=== PATIENT | male | born 1945 | race Caucasian/White ===

== ENCOUNTER → 2016-09-23 | Outpatient (CLI) | payer OTHER, MEDICARE ==
--- NOTE | 2016-09-23 16:49 | DX ---
Chest, Two Views - September 23, 2016, at 1549 hours History: Cough for 6 months, R05, R53.83, K30. Comparison: August 2010. Findings: Cardiac silhouette is within normal range. Linear density in the right middle lobe is new since the previous study representing atelectasis or scarring. Increased reticular densities in both lungs peripherally, which may represent developing interstitial pulmonary fibrosis, given the chroni city of findings. No definite focal pneumonia, congestive heart failure, pleural effusion, or pneumot horax. Tortuous thoracic aorta. Impression: 1. New atelectasis in the right middle lobe. 2. Possible chronic bronchitis versus early interstitial pulmonary fibrosis, for which additional taty ging is recommended. 3. Recommend CT chest with contrast enhancement for further evaluation of the pulmonary parenchyma, g iven the new radiographic findings and chronic cough to exclude postobstructive pneumonitis. A follow-up required test result notification was sent via the [facility] service, 4:44:48 PM, 09/23/2016, [facility] Message ID [id number].
== END ==
LOC: FIMAGING 15:53
PROVIDERS: ATTEND Internal Medicine
DX: R05 Cough (principal); R53.83 Other fatigue; K30 Functional dyspepsia; J98.11 Atelectasis

== ENCOUNTER 2017-09-03 11:57 | Emergency (ER) | payer OTHER, MEDICARE ==
[2017-09-03 12:06] VITALS: BP 122/78; PULSE 74; RESP 16; TEMP 97.9; O2SAT 96
--- NOTE | 2017-09-03 13:20 | EDPHY ---
ED Progress Note Narrative: 1:18 p.m.: The patient was not in the bed in [place] to as appointed. I was told that the patient left against medical advice. I did not see this patient while he was in the emergency department.
--- NOTE | 2017-09-03 22:27 | EDPHY ---
H & P Time Seen by Provider: 09/03/17 12:38 HPI/ROS: CHIEF COMPLAINT: Finger lacerations and amputation HPI: 72 year old present reporting an injury to his left hand with a "tool". Nursing staff reported hand injured by table saw, patient states it didn't matter, it was a tool. He reports significant injury to left index finger and laceration of left middle finger. No other injuries or complaints. Otherwise well prior to the events. On no anticoagulants REVIEW OF SYSTEMS:10 point review of systems as per HPI. GENERAL APPEARANCE: Alert, no distress, seems frustrated and worried. FOCUSED EXAM ON LEFT UPPER EXTREMITY: FROM left shoulder and elbow. No injury to upper arm or forearm or wrist. Left thumb: Laceration present on ulnar aspect. Bleeding controlled. Normal extensor/flexor function, normal cap refill. Normal sensation. Left index finger: Avulsion defect of 2 cm present on ulnar aspect, over distal phalanx. Bone visible as well as ?digital nerve?. Normal extensor mechanism and flexor mechanism/ strength. Left middle finger: superficial 2 cm laceration along radial side of finger. Bleeding well controlled. Smoking Status: Never smoked Constitutional: Initial Vital Signs Temperature (C) 36.6 C 09/03/17 12:04 Heart Rate 74 09/03/17 12:04 Respiratory Rate 16 09/03/17 12:04 Blood Pressure 122/78 H 09/03/17 12:04 O2 Sat (%) 96 09/03/17 12:04 O2 Delivery Mode Room Air Allergies/Adverse Reactions: No Known Allergies Allergy (Verified 09/03/17 12:04) Home Medications: Medication Instructions Recorded NK [No Known Home Meds] 09/03/17 Medical Decision Making - Diagnostics Imaging Results: Imaging Impressions Hand X-Ray 09/03/17 12:10 Impression: Soft tissue injuries, with no acute osseous abnormality observed. ED Course/Re-evaluation: 72 year old male with avulsion type injury along lateral aspect on index finger. Will need careful exploration, debridement, soft tissue coverage. Patient has piece of tissue which had been lacerated off. He is wondering if it should be reimplanted. Advised that most likely would not be appropriate. Moist dressing applied. Will perform digital blocks and further explore. While tending to patient care and awaiting a bed in a room to open where patient could be examined under overhead lamp, etc., patient abruptly decided to leave ED. He did advise nursing staff. States he wants to go to a hand surgeon. Did not wish to wait until I could discuss with patient again my concerns and plan of care. Patient left ED after signing AMA form. Workup incomplete and evaluation incomplete. Differential Diagnosis: Differential diagnosis for the patient's injury was considered including but not limited to contusion, abrasion, laceration, degloving injury, nerve damage, open joint, fracture, open fracture, or dislocation. Departure - Departure Disposition: Against Medical Advice Clinical Impression: Laceration Degloving injury of finger Qualifiers: Encounter type: initial encounter Qualified Code(s): S61.209A - Unspecified open wound of unspecified finger without damage to nail, initial encounter Condition: Good Additional Instructions: Left without completion of evaluation. Referrals: Tito Rodriguez MD [Primary Care Provider] - As per Instructions
== END 2017-09-03 13:33 | disposition left against medical advice (07) ==
DX: S61.211A Laceration without foreign body of left index finger without damage to nail, initial encounter (principal); S61.213A Laceration without foreign body of left middle finger without damage to nail, initial encounter; W27.0XXA Contact with workbench tool, initial encounter

== ENCOUNTER 2017-11-25 12:46 | Day surgery (SDC) | payer OTHER, MEDICARE ==
--- NOTE | 2017-11-25 11:39 | GHP ---
[f rep st] PREOP HISTORY AND PHYSICAL DATE OF ADMISSION: 11/25/2017 HISTORY OF PRESENT ILLNESS: The patient is a 72-year-old male who has been diagnosed with esophageal cancer nearly obstructing. He is in need of a port to initiate chemotherapy. Admitted at this time for port placement. Risks and options have been fully discussed, and he wishes to proceed. PAST MEDICAL HISTORY: An inguinal hernia repair. No other major hospitalizations, surgeries, or carlee or illnesses other than newly diagnosed esophageal cancer. He has had a 35 pounds weight loss over t he last 3 years, but specifically about 10 pounds over the last few weeks. REVIEW OF SYSTEMS: Negative on a full 10-point review of systems. Specifically he does not smoke. Denies any cardiac symptoms. ALLERGIES: None. MEDICATIONS: None. PHYSICAL EXAMINATION: GENERAL: An alert, healthy 72-year-old male in no acute distress who is quite thin appearing. HEENT: Reveals no icterus. No adenopathy. No oral lesions. NECK: Supple, nonte nder without bruits or thyromegaly. CHEST: Clear. CARDIAC: Regular rhythm without murmurs. ABDOM EN: Soft, scaphoid, nontender without masses. EXTREMITIES: Benign with full range of motion, full pulses. SKIN: Negative for rashes or other lesions. PSYCH: Alert, oriented, and cooperative. JENNIFER ROLOGIC: Physiologic and symmetric. IMPRESSION: Nearly obstructing esophageal cancer. PLAN: Port for chemotherapy. The risks and options have been fully discussed and he wishes to proce ed. /[id number]/MODL
[2017-11-25] MEDS ORDERED: ceFAZolin 2 GM/SWFI 2 GM/20 ML SYR IVP ONE (13:00)
[2017-11-25] MEDS ORDERED: LR 1,000 ML IV ONE (13:03)
[2017-11-25] MEDS ORDERED: LIDOCAINE 1% 2 ML INJ ID PRN (13:03)
[2017-11-25] MEDS ORDERED: LIDOCAINE 1% 300 MG/30 ML SDV ONE (13:14)
[2017-11-25] MEDS ORDERED: BUPIVACAINE 0.5% 10 ML SDV ONE (13:14)
[2017-11-25] MEDS ORDERED: BACITRACIN ZINC 14.2 GM OINTTUBE TP ONE (13:14)
[2017-11-25] MEDS ORDERED: PROPOFOL/EMULSION 500 MG/50 ML BOTTLE IV ONE (13:37)
[2017-11-25] MEDS ORDERED: fentaNYL 100 MCG/2 ML INJ ONE (13:41)
[2017-11-25] MEDS ORDERED: ALBUTEROL 3 ML DEYVIAL IH PRN (13:54)
[2017-11-25] MEDS ORDERED: HYDROCODONE/APAP 5/325 TAB PO PRN (13:54)
[2017-11-25] MEDS ORDERED: ONDANSETRON 4 MG/2 ML VIAL IVP PRN (13:54)
[2017-11-25] MEDS ORDERED: fentaNYL 100 MCG/2 ML INJ IVP PRN (13:54)
[2017-11-25] MEDS ORDERED: MEPERIDINE 25 MG/ML SYR IVP PRN (13:54)
[2017-11-25] MEDS ORDERED: LABETALOL HCL 5 MG/ML 20 ML MDV IVP PRN (13:54)
[2017-11-25] MEDS ORDERED: NALOXONE HCL 0.4 MG/ML INJ IVP PRN (13:54)
--- NOTE | 2017-11-25 13:54 | PDANEPAE ---
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 ANE Past Medical History - Cardiovascular History Hx Hypertension: No Hx Arrhythmias: No Hx Chest Pain: No Hx Coronary Artery / Peripheral Vascular Disease: No Hx CHF / Valvular Disease: No Hx Palpitations: No - Pulmonary History Hx COPD: No Hx Asthma/Reactive Airway Disease: No Hx Recent Upper Respiratory Infection: No Hx Oxygen in Use at Home: No Hx Sleep Apnea: No Sleep Apnea Screening Result - Last Documented: Negative - Neurologic History Hx Cerebrovascular Accident: No Hx Seizures: No Hx Dementia: No - Endocrine History Hx Diabetes: No - Renal History Hx Renal Disorders: No - Liver History Hx Hepatic Disorders: No - Neurological & Psychiatric Hx Hx Neurological and Psychiatric Disorders: No - Cancer History Hx Cancer: No - Congenital Disorder History Hx Congenital Disorders: No - GI History Hx Gastrointestinal Disorders: No - Chronic Pain History Chronic Pain: No ANE Review of Systems Review of systems is: negative Review of Systems: - Exercise capacity METS (RN): 4 METS ANE Patient History - Allergies Allergies/Adverse Reactions: No Known Allergies Allergy (Verified 09/03/17 12:04) - Home Medications Home Medications: Omeprazole 11/25/17 [Last Taken 11/25/17] - NPO status NPO Since - Liquids (Date): 11/25/17 NPO Since - Liquids (Time): 06:30 NPO Since - Solids (Date): 11/11/17 NPO Since - Solids (Time): 09:00 - Smoking Hx Smoking Status: Never smoked ANE Labs/Vital Signs - Vital Signs Blood Pressure: 107/75 Heart Rate: 82 Respiratory Rate: 18 O2 Sat (%): 93 Height: 182.88 cm Weight: 68.039 kg ANE Physical Exam - Airway Neck exam: FROM Mallampati Score: Class 1 Mouth exam: normal dental/mouth exam - Pulmonary Pulmonary: no respiratory distress - Cardiovascular Cardiovascular: regular rate and rhythym - ASA Status ASA Status: II ANE Anesthesia Plan Anesthesia Plan: MAC
--- NOTE | 2017-11-25 14:30 | POSTOPPROG ---
Post Op Note Date of Operation: 11/25/17 Surgeon: Ez Platt Anesthesia: IV Sedation Pre-op Diagnosis: Esophageal CA Post-op Diagnosis: Same Indication: Port for chemo Procedure: Port placement, left chest Inf/Abcess present in the surg proc area at time of surgery?: No
[2017-11-25 15:28] VITALS: RESP 20
[2017-11-25 15:42] VITALS: TEMP 97.7
[2017-11-25 16:14] VITALS: PULSE 71
[2017-11-25 16:49] VITALS: BP 109/75; O2SAT 95
--- NOTE | 2017-12-08 17:03 | GOP ---
[f rep st] OPERATIVE REPORT DATE OF OPERATION: 11/25/2017 SURGEON: Ez Platt MD FOOD AND NUTRITION SUPERVISOR: None. PREOPERATIVE DIAGNOSIS: Metastatic colon cancer. POSTOPERATIVE DIAGNOSIS: Metastatic colon cancer. PROCEDURE PERFORMED: Left subclavian port placement with fluoroscopic guidance. FINDINGS: good position and flow DESCRIPTION OF PROCEDURE: The patient was taken to the operating room where he received satisfactory general laryngeal mask anesthesia. He was placed in the supine position, prepped and draped in the usual sterile fashion. A single stick was made in the left subclavian vein. With the patient in Trendelenburg, a guidewire was introduced. Position was confirmed with fluoroscopy. A subcu pocket was made in the 2nd intercostal space. Port tubing was passed from that pocket to the subclavian insertion site and trimmed to the appropriate length using fluoroscopic guidance. It was then introduced into the right atrium via the dilator and introducer system. Good backflow was achieved. The catheter was flushed with heparin saline. Port was secured to the fascia with 3-0 Vicryl. The pocket was closed with 3-0 Vicryl for the subcu and 4-0 Prolene subcuticular stitch for the skin. The entrance site was closed with a prolene mattress suture. He tolerated the procedure quite well. Blood loss negligible. No complications. Taken to the recovery room in good condition. /[id number]/MODL MTDD
== END 2017-11-25 16:05 | disposition home or self-care (01) ==
LOC: FSGY 12:46
PROVIDERS: ATTEND Surgery
PROC: 02H633Z Insertion of Infusion Device into Right Atrium, Percutaneous Approach (ICD-10-PCS; principal; 2017-11-25 14:00)
PROC: 0JH60XZ Insertion of Tunneled Vascular Access Device into Chest Subcutaneous Tissue and Fascia, Open Approach (ICD-10-PCS; principal; 2017-11-25 14:00)
DX: C15.9 Malignant neoplasm of esophagus, unspecified (principal)
CPT/HCPCS: C1788; J0690; J1642; J2704; J3010

== ENCOUNTER 2018-01-10 09:40 | Day surgery (SDC) | payer OTHER, MEDICARE ==
[2018-01-10 10:33] LABS: INR 1.79 (0.83-1.16); PROTIME(PATIENT) 20.9 SEC (12.0-15.0)
[2018-01-10] MEDS ORDERED: FLUMAZENIL 0.5 MG/5 ML MDV IVP ONE (10:33)
[2018-01-10] MEDS ORDERED: fentaNYL 100 MCG/2 ML INJ ONE (10:34)
[2018-01-10] MEDS ORDERED: MIDAZOLAM 2 MG/2 ML VIAL ONE (10:34)
[2018-01-10] MEDS ORDERED: NALOXONE HCL 0.4 MG/ML INJ ONE (10:34)
[2018-01-10] MEDS ORDERED: MIDAZOLAM 2 MG/2 ML VIAL IVP PRN (10:51)
[2018-01-10] MEDS ORDERED: NALOXONE HCL 0.4 MG/ML INJ IVP PRN (10:51)
[2018-01-10] MEDS ORDERED: fentaNYL 100 MCG/2 ML INJ IVP PRN (10:51)
[2018-01-10] MEDS ORDERED: MEPERIDINE 25 MG/ML SYR IVP PRN (10:51)
[2018-01-10] MEDS ORDERED: FLUMAZENIL 0.5 MG/5 ML MDV IVP PRN (10:51)
[2018-01-10] MEDS ORDERED: NS 1,000 ML IV SCH (11:00)
--- NOTE | 2018-01-10 11:08 | PDGENHP ---
History & Physical Chief Complaint: ESOPHAGEAL CANCER History of Present Illness: STARTED CHEMO. NO XRT. VERY TIGHT DISTAL ESOPHAGOUS. 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 CTA
[2018-01-10] MEDS ORDERED: LIDOCAINE 1% 300 MG/30 ML SDV ONE (11:10)
--- NOTE | 2018-01-10 11:10 | PDPROPOC ---
Sedation Plan of Care Sedation Plan of Care: vital signs stable, mental status noted, patient educated of risks, benefits, alternatives, patient can tolerate sedation ASA Classification: ASA 3 Planned drugs: fentanyl, midazolam Mallampati Score: Class 1 Mallampati Reference Image: Patient passed 3-3-2 rule?: Yes
[2018-01-10] MEDS ORDERED: LIDOCAINE 2% JELLY 20 ML (UROJECT) ONE (11:11)
[2018-01-10] MEDS ORDERED: ACETAMINOPHEN 325 MG TAB PO PRN (12:40)
[2018-01-10] MEDS ORDERED: ONDANSETRON 4 MG/2 ML VIAL IVP PRN (12:40)
--- NOTE | 2018-01-10 12:42 | PDRADPN ---
Radiology Procedure Note Date of Procedure: 01/10/18 Radiologist: Agnieszka Wilson Anesthesia: IV Sedation Pre-op Diagnosis: ESOPHAGEAL CANCER Post-op Diagnosis: SAME Indication: CAN NOT EAT Procedure: G-TUBE PLACEMENT Inf/Abcess present in the surg proc area at time of surgery?: No Complications: NONE Drains: Other (G-TUBE)
[2018-01-10 14:20] VITALS: BP 123/82
== END 2018-01-10 14:15 | disposition home or self-care (01) ==
LOC: FIMAGING 09:40
PROVIDERS: ATTEND Radiology Diagnostic Radiology
PROC: 0DH63UZ Insertion of Feeding Device into Stomach, Percutaneous Approach (ICD-10-PCS; principal; 2018-01-10 12:30)
DX: C16.0 Malignant neoplasm of cardia (principal)
CPT/HCPCS: 49440; C1729; C1769; J1642; J2250; J2310; J3010

== ENCOUNTER 2018-04-17 12:46 | Emergency (ER) | payer OTHER, MEDICARE ==
[2018-04-17 12:52] VITALS: BP 112/70
--- NOTE | 2018-04-17 13:00 | EDPHY ---
H & P Smoking Status: Never smoked Time Seen by Provider: 04/17/18 13:00 HPI/ROS: CHIEF COMPLAINT: Worsening abdominal pain HISTORY OF PRESENT ILLNESS: Patient has metastatic gastroesophageal junction adenocarcinoma, is on TPN, is currently on morphine. He presents with worsening abdominal pain and retching up some black liquid today. Symptoms severe, was called by his oncologist and palliative care physician prior to arrival. He is really unable to eat and has been that way for a while. Is oncologist request CT scanning of abdomen and pelvis to evaluate his illness further, consideration for hospice at this time. REVIEW OF SYSTEMS: Eye: no change in vision ENT: no sore throat Cardiac: no chest pain or syncope Pulmonary: no cough or SOB Abdomen: HPI, decreased oral intake Musculoskeletal: no back pain Skin: no rash Neuro: no headache Constitutional: no fever : no urinary symptoms A comprehensive 10 point review of systems is otherwise negative aside from elements mentioned in the history of present illness. PAST MEDICAL HISTORY: Gastroesophageal junction adenocarcinoma Social history: Here with his and [id number] General Appearance: Alert and conversant, cooperative. Eyes: No scleral icterus. ENT, Mouth: Dry mucous membranes Respiratory: Normal respiratory effort, breath sounds equal, lungs are clear to auscultation. Cardiovascular: Regular rate and rhythm. Gastrointestinal: Abdomen is soft and non tender. He has a feeding tube in place, skin around it is not red or excoriated. Neurological: Alert, face symmetric, normal motor and sensory in extremities. Skin: Warm and dry, no rashes. Musculoskeletal: No peripheral edema. Psychiatric: Not agitated. Emergency Department course/MDM: Left subclavian port in place accessed. CT scanning discussed and consented. He is on morphine so 6 mg IV additional given. Call to Kareem at [phone] 1534: Finer on CT compared to previous April 02, 2018. Necrotic ulcerated mass increased in size, as well as adjacent node/s. Bile ducts slightly more prominent. 1535: Karoline discussed results will see in ED. Jayden at this time as well. Signed to Steven; Karoline will see and inpatient hospice vs. inpatient medicine service. (Luis Mendoza) Constitutional: Initial Vital Signs Temperature (C) 36.4 C 04/17/18 12:50 Heart Rate 98 04/17/18 12:50 Respiratory Rate 17 04/17/18 12:50 Blood Pressure 112/70 04/17/18 12:50 O2 Sat (%) 94 04/17/18 12:50 O2 Delivery Mode Room Air Allergies/Adverse Reactions: No Known Allergies Allergy (Verified 04/17/18 12:49) Home Medications: Medication Instructions Recorded Omeprazole 25 mg PO DAILY 11/25/17 MORPHINE SULFATE 10 mg PO Q2HRS PRN 01/09/18 Prochlorperazine Maleate 10 mg PO Q6HRS PRN 01/09/18 Valium 5 MG (*) 5 mg PO Q6-8PRN PRN 01/09/18 Ondansetron [Zuplenz] 01/10/18 Keytruda 04/17/18 Prednisone 04/17/18 Medical Decision Making - Diagnostics Imaging Results: Imaging Impressions Abdomen CT 04/17/18 13:46 Impression: 1. Slight increase size of large ulcerated lobulated mass the GE junction extending anteriorly as well as adjacent necrotic appearing anterior lymph node at the GE junction since prior study from 04/02/2018. 2. Mild increased prominence of intra and extrahepatic biliary ductal dilatation. No evidence of biliary calculus seen. 3. Moderate constipation. Findings discussed with Luis Mendoza M.D. at 15:33 hour, 04/17/2018. ED Course/Re-evaluation: I took over care of this patient at 3:[address] Luis Mendoza. This patient has a history of advanced esophageal cancer. He is to be admitted directly to hospice by Dr. Edward beckett to the hospitalist service. Dr. Leon is currently in the emergency department and is evaluating the patient for direct hospice admission. Dr. Mendoza has also discussed details of the case with the on- call hospitalist Dr. Delmer Fregoso. 5:20 p.m., the patient was admitted to to the hospitalist service under the care of Dr. Delmer Fregoso. However the patient and his now inform me that they wish to be discharged. He has close follow-up arranged through his palliative care physician Dr. Ramey. His oncologist Dr. Carpenter as well as his admitting physician Dr. Fregoso are supportive of his discharge. He will be discharged to home as he and his wish. Return to emergency department precautions discussed with him. Follow-up was reviewed. All of their questions were answered. The patient was discharged home in stable condition. ( Tiffany Aragon) - Data Points Laboratory Results: Laboratory Results 04/17/18 13:25 04/17/18 13:25 04/17/18 04/17/18 04/17/18 13:33 13:25 13:25 WBC 10.37 10^3/uL H 10^3/uL (3.80-9.50) RBC 3.71 10^6/uL L 10^6/uL (4.40-6.38) Hgb 10.3 g/dL L g/dL (13.7-17.5) POC Hgb 10.5 gm/dL L gm/dL (13.7-17.5) Hct 32.4 % L % (40.0-51.0) POC Hct 31 % L % (40-51) MCV 87.3 fL fL (81.5-99.8) MCH 27.8 pg L pg (27.9-34.1) MCHC 31.8 g/dL L g/dL (32.4-36.7) RDW 15.3 % H % (11.5-15.2) Plt Count 261 10^3/uL 10^3/uL (150-400) MPV 10.7 fL fL (8.7-11.7) Neut % (Auto) 87.3 % H % (39.3-74.2) Lymph % (Auto) 5.7 % L % (15.0-45.0) [place] % (Auto) 5.5 % % (4.5-13.0) Eos % (Auto) 0.8 % % (0.6-7.6) Baso % (Auto) 0.1 % L % (0.3-1.7) Nucleat RBC Rel Count 0.0 % % (0.0-0.2) Absolute Neuts (auto) 9.05 10^3/uL H 10^3/uL (1.70-6.50) Absolute Lymphs (auto) 0.59 10^3/uL L 10^3/uL (1.00-3.00) Absolute Monos (auto) 0.57 10^3/uL 10^3/uL (0.30-0.80) Absolute Eos (auto) 0.08 10^3/uL 10^3/uL (0.03-0.40) Absolute Basos (auto) 0.01 10^3/uL L 10^3/uL (0.02-0.10) Absolute Nucleated RBC 0.00 10^3/uL 10^3/uL (0-0.01) Immature Gran % 0.6 % % (0.0-1.1) Immature Gran # 0.06 10^3/uL 10^3/uL (0.00-0.10) RBC/WBC/PLT Morphology TNP Platelet Estimate TNP Smear Review By TNP POC Sodium 136 mEq/L mEq/L (135-145) Sodium 134 mEq/L L mEq/L (135-145) POC Potassium 3.8 mEq/L mEq/L (3.3-5.0) Potassium 3.9 mEq/L mEq/L (3.3-5.0) POC Chloride 99 mEq/L mEq/L (97-110) Chloride 99 mEq/L mEq/L (97-110) Carbon Dioxide 27 mEq/l mEq/l (22-31) Anion Gap 8 mEq/L mEq/L (8-16) POC BUN 31 mg/dL H mg/dL (7-23) BUN 37 mg/dL H mg/dL (7-23) Creatinine 0.6 mg/dL L mg/dL (0.7-1.3) POC Creatinine 0.6 mg/dL L mg/dL (0.7-1.3) Estimated GFR > 60 Glucose 92 mg/dL mg/dL (70-100) POC Glucose 92 mg/dL mg/dL (70-100) Calcium 9.5 mg/dL mg/dL (8.5-10.4) Total Bilirubin 0.3 mg/dL mg/dL (0.1-1.4) Conjugated Bilirubin 0.3 mg/dL mg/dL (0.0-0.5) Unconjugated Bilirubin 0.0 mg/dL mg/dL (0.0-1.1) AST 23 IU/L IU/L (17-59) ALT 39 IU/L IU/L (21-72) Alkaline Phosphatase 101 IU/L IU/L (38-126) Total Protein 5.5 g/dL L g/dL (6.3-8.2) Albumin 2.5 g/dL L g/dL (3.5-5.0) Lipase 45 IU/L IU/L (23-300) Medications Given: Discontinued Medications Sodium Chloride (Ns) 1,000 mls @ 0 mls/hr IV EDNOW ONE; Wide Open PRN Reason: Protocol Stop: 04/17/18 13:11 Last Admin: 04/17/18 13:22 Dose: 1,000 mls Morphine Sulfate (Morphine) 6 mg IVP EDNOW ONE Stop: 04/17/18 13:11 Last Admin: 04/17/18 13:22 Dose: 6 mg Point of Care Test Results: Chemistry 04/17/18 13:33 POC Sodium 136 mEq/L mEq/L (135-145) POC Potassium 3.8 mEq/L mEq/L (3.3-5.0) POC Chloride 99 mEq/L mEq/L (97-110) POC BUN 31 mg/dL H mg/dL (7-23) POC Creatinine 0.6 mg/dL L mg/dL (0.7-1.3) POC Glucose 92 mg/dL mg/dL (70-100) ISTAT H&H 04/17/18 13:33 POC Hgb 10.5 gm/dL L gm/dL (13.7-17.5) POC Hct 31 % L % (40-51) Departure - Departure Disposition: Home, Routine, Self-Care Clinical Impression: Abdominal pain, Esophageal cancer Condition: Fair Instructions: Abdominal Pain (ED) Additional Instructions: Read and follow provided instructions. Follow-up with your palliative care physician tomorrow and oncologist tomorrow as discussed. Return to the emergency department for worsening symptoms or other serious concerns. Referrals: Alonso Carpenter MD [Primary Care Provider] - As per Instructions
[2018-04-17] MEDS ORDERED: NS 1,000 ML IV ONE (13:10)
[2018-04-17 13:35] LABS: PLATELET COUNT 261 10^3/uL (150-400)
[2018-04-17] MEDS ORDERED: IOPAMIDOL (ISOVUE-300) 100 ML BTL ONE (14:01)
--- NOTE | 2018-04-17 16:56 | PDCONSULT ---
[employer] Man Note: PALLIATIVE MEDICINE NOTE Patient seen in ED in follow up of home visit earlier today. Chip is a 72 year old male with GE junction adenocarcinoma who has most recently received Keytruda therapy. Patient's reports notable decline over last two weeks, with increased pain (now nearly continuous), worsening fatigue, concentrated urine, nominal PO intake and further weight loss. After long conversation of options ranging from focus on comfort and quality of life versus hospital management, patient sent to ED for pain control, and imaging as per his request. CT of chest and abdomen reviewed with patient and Dr. Carpenter - progressive cystic masses along esophagus and stomach with near obliteration of lumen. Dr. Carpenter reviewed significance of findings with patient and his - given poor functional status, further aggressive interventions likely of little benefit, and comfort-focused care recommended. Chpi is not ready to meet with Hospice services tonight, and would like to have some time to process this new information. The couple welcomes a check in call tomorrow and have my business card should they need services urgently. Recommend that patient's bowels be addressed prior to DC (considerable stool visualized on CT and no meaningful BM in nearly a week) which should help with pain at least partially. D/W ED . Alonso Ramey MD Palliative Medicine No billing entered as patient seen in his home earlier today.
== END 2018-04-17 17:25 | disposition home or self-care (01) ==
DX: R10.9 Unspecified abdominal pain (principal); C15.9 Malignant neoplasm of esophagus, unspecified; E86.9 Volume depletion, unspecified
CPT/HCPCS: 74177; 96374; 99285; J2270; Q9967; 82435-PO; 82565-PO; 82947-PO; 84132-PO; 84295-PO; 84520-PO; 85014-PO